=== PATIENT | male | born 2005 | race Caucasian/White ===

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

== ENCOUNTER 2025-04-15 10:38 | Emergency (ER) | payer OTHER ==
[2025-04-15 10:57] VITALS: TEMP 97.5
--- NOTE | 2025-04-15 11:31 | ED ---
Psych HPI - General Chief Complaint: Psychiatric Symptoms Stated Complaint: Petition Time Seen by Provider: 04/15/25 11:23 Source: patient, family (mother), RN notes reviewed Mode of arrival: ambulatory Limitations: no limitations - History of Present Illness Initial Comments: 19-year-old male accompanied by his mother presented the ER for evaluation of multiple complaints. Mother is aiding in HPI. Mother reports over the past month patient has been having difficulty breathing during the night. Frequently waking up unable to catch his breath. Patient reports this was worse last night and he was having mild tightness in his chest during this episode. He denies any dizziness, lightheadedness, diaphoresis, peripheral edema. Denies history of DVTs or PEs. Patient denies any recent sick contacts, fevers, chills, cough or congestion. Patient has not taken anything for symptoms at this time. Mother reports over the past couple of months patient has been seeing a counselor out of [facility]. They recommended a couple days ago that patient undergo mental health evaluation either inpatient or at a daily program out of [place]. Mother reports given they only have 1 vehicle patient is unable to do day program as she needs to be able to go to work, which he gets frequently angry about. Mother reports patient states he does not want to go inpatient as they will take him off Adderall. Mother reports over the past couple of weeks patient has becoming increasingly angry with frequent breakdowns often throwing and punching johnston. Last night patient was up all night having a breakdown throwing things and punching johnston in his room. She states he has never been physical with her but did mention he stated he would hurt her if she admitted him to the mental health unit. Mother states she "tricked" patient into coming to the emergency department for evaluation of breathing but states she is petitioning him for mental health evaluation. Mother reports patient does smoke tobacco and marijuana along with occasional alcohol consumption. She also mention patient has made suicidal comments recently. Patient denies homicidal or suicidal ideations. He also denies hallucinations. - Related Data Home Medications Medication Instructions Recorded Confirmed Dextroamphetamine/Amphetamine 7.5 mg PO BID 04/15/25 04/15/25 [Adderall 7.5 mg Tablet] Metoprolol Succinate (ER) [Toprol 50 mg PO DAILY 04/15/25 04/15/25 Xl] Mirtazapine [Remeron] 15 mg PO HS 04/15/25 04/15/25 Previous Rx's Medication Instructions Recorded Albuterol Inhaler [Ventolin Hfa 1 - 2 puff INHALATION Q6H PRN #1 04/15/25 Inhaler] each Allergies Allergy/AdvReac Type Severity Reaction Status Date / Time No Known Allergies Allergy Verified 04/15/25 14:45 Review of Systems ROS Statement: Those systems with pertinent positive or pertinent negative responses have been documented in the HPI. ROS Other: All systems not noted in ROS Statement are negative. Past Medical History Past Medical History: Asthma Additional Past Medical History / Comment(s): pneumonia History of Any Multi-Drug Resistant Organisms: None Reported Past Surgical History: No Surgical Hx Reported Additional Past Surgical History / Comment(s): wisdom teeth Past Psychological History: Anxiety, Depression Smoking Status: Never smoker, Vaper Past Alcohol Use History: Occasional Past Drug Use History: Marijuana General Exam Limitations: no limitations General appearance: alert, in no apparent distress ENT exam: Present: normal exam, normal oropharynx, mucous membranes moist Respiratory exam: Present: normal lung sounds bilaterally. Absent: respiratory distress, wheezes, rales, rhonchi, stridor Cardiovascular Exam: Present: normal rhythm, tachycardia, normal heart sounds GI/Abdominal exam: Present: soft, normal bowel sounds. Absent: distended, tenderness, guarding, rebound, rigid Extremities exam: Present: normal inspection, full ROM, normal capillary refill, other (No calf tenderness.). Absent: tenderness, pedal edema, joint swelling, c care home tenderness Neurological exam: Present: alert, oriented X3, CN II-XII intact Psychiatric exam: Present: anxious, flat affect Skin exam: Present: warm, dry, intact, normal color. Absent: rash Course Vital Signs 04/15/25 04/15/25 10:44 16:35 Temperature 97.5 F L Pulse Rate 115 H 98 Respiratory 22 18 Rate Blood Pressure 127/85 118/75 O2 Sat by Pulse 96 99 Oximetry - Reevaluation(s) Reevaluation #1: 04/15/25 15:45 Case discussed with Isi CHERY, EPS, she evaluated patient and reports patient denied SI or HI and can be discharged home with safety plan in place Medical Decision Making - Medical Decision Making Was pt. sent in by a medical professional or institution (Dr., PA, POWER HAMMER OPERATOR, urgent care, hospital, or penitentiary...) When possible be specific @ -No Did you speak to anyone other than the patient for history (EMS, parent, family, police, friend...)? What history was obtained from this source @ -Patient's mother aiding in HPI and past medical history. Did you review nursing and triage notes (agree or disagree)? Why? @ -I reviewed and agree with nursing and triage notes Were old charts reviewed (outside hosp., previous admission, EMS record, old EKG, old radiological studies, urgent care reports/EKG's, penitentiary records)? Report findings @ -No old charts were reviewed Differential Diagnosis (chest pain, altered mental status, abdominal pain women, abdominal pain men, vaginal bleeding, weakness, fever, dyspnea, syncope, headach e, dizziness, GI bleed, back pain, seizure, CVA, palpatations, mental health, musculoskeletal)? @ -Differential Dyspnea:Coronary syndrome, arrhythmia, tamponade, asthma, COPD, pulmonary embolism, pneumonia, pneumothorax, pulmonary effusion, anaphylaxis, diabetic ketoacidosis, flailed chest, pulmonary contusion, diaphragmatic rupture, anemia, neuromuscular, this is not meant to be an all-inclusive list. EKG interpreted by me (3pts min.). @ -As above X-rays interpreted by me (1pt min.). @ -CXR interpreted by me negative for focal consolidations, pneumothorax or pleural effusions. CT interpreted by me (1pt min.). @ -None done U/S interpreted by me (1pt. min.). @ -None done What testing was considered but not performed or refused? (CT, X-rays, U/S, labs)? Why? @ -None What meds were considered but not given or refused? Why? @ -None Did you discuss the management of the patient with other professionals (professionals i.e. , PA, POWER HAMMER OPERATOR, lab, RT, psych nurse, social secretary, gold marker, te acher, landing signal officer, case management director)? Give summary @ -Yes, Case discussed with Isi CHERY, EPS. She states patient to be discharged home with safety plan in place. Was smoking cessation discussed for >3mins.? @ -I discussed smoking cessation for greater than 3 minutes. The risk of smoking were discussed with the patient including but not limited to risks of cancer, stroke, coronary artery disease and COPD. Also discussed with patient were multiple methods of quitting smoking. Lastly we discussed the financial cost of smoking. Was critical care preformed (if so, how long)? @ -No Were there social determinants of health that impacted care today? How? (Homelessness, low income, unemployed, alcoholism, drug addiction, transportation, low edu. Level, literacy, decrease access to med. care, fdc, rehab)? @ -No Was there de-escalation of care discussed even if they declined (Discuss DNR or withdrawal of care, Hospice)? DNR status @ -No What co-morbidities impacted this encounter? (DM, HTN, Smoking, COPD, CAD, Cancer, CVA, ARF, Chemo, Hep., AIDS, mental health diagnosis, sleep apnea, morbid obesity)? @ -Mental health Was patient admitted / discharged? Hospital course, mention meds given and route, prescriptions, significant lab abnormalities, going to OR and other pertinent info. @ -Discharge. 19-year-old male accompanied by his mother presented to ER for mental health evaluation. Patient also notes shortness of breath for which dyspnea workup was obtained. Upon arrival patient mildly tachycardic at 115 bpm vitals otherwise stable. Patient had no signs of acute distress nontoxic- appearing. Lung sounds clear throughout all lung chou. Laboratory studies obtained unimpressive. Troponin undetectable. D-dimer undetectable. EKG showing a sinus rhythm with early repolarization. Viral swabs negative. UDS positive for amphetamines and marijuana patient is prescribed Adderall. CXR negative. Patient medically cleared for EPS evaluation. Isi EPS RN, evaluated patient and reports patient can be discharged home as safety plan is in place. Patient will be prescribed albuterol inhaler for shortness of breath. Strict return discussed. Patient discharged in stable condition advised follow-up with PCP and counseling. Patient and mother both state they feel comfortable going home. Patient and patient's mother verbally expressed understanding and agreement with care plan. Case discussed with ED attending, Dr. Fuchs. Undiagnosed new problem with uncertain prognosis? @ -No Drug Therapy requiring intensive monitoring for toxicity (Heparin, Nitro, Insulin, Cardizem)? @ -No Were any procedures done? @ -No Diagnosis/symptom? @ -Encounter for mental health evaluation/shortness of breath Acute, or Chronic, or Acute on Chronic? @ -Acute Uncomplicated (without systemic symptoms) or Complicated (systemic symptoms)? @ -Uncomplicated Side effects of treatment? @ -No Exacerbation, Progression, or Severe Exacerbation? @ -No Poses a threat to life or bodily function? How? (Chest pain, [place], [place], pneumonia, PE, COPD, DKA, ARF, appy, cholecystitis, CVA, Diverticulitis, Homicidal, Suicidal, threat to staff... and all critical care pts) @ -No - Lab Data Result diagrams: 04/15/25 11:55 04/15/25 11:55 Lab Results 04/15/25 04/15/25 04/15/25 Range/Units 11:21 11:25 11:55 WBC 8.78 (4.50-10.00) 10*3/uL RBC 5.56 (4.40-5.60) 10*6/uL Hgb 16.7 (13.0-17.0) g/dL Hct 46.9 (39.6-50.0) % MCV 84.4 (80.0-97.0) fL MCH 30.0 (27.0-32.0) pg MCHC 35.6 (32.0-37.0) g/dL Plt Count 191 (140-440) 10*3/uL MPV 9.7 (9.5-12.2) fL Immature Gran % (Auto) 0.5 % Neutrophils % 56.4 % Lymphocytes % 22.8 % Monocytes % 8.4 % Eosinophils % 11.2 % Basophils % 0.7 % Immature Gran # 0.04 (0.00-0.04) 10*3/uL Neutrophils # 4.96 (1.80-7.70) 10*3/uL Lymphocytes # 2.00 (0.90-5.00) 10*3/uL Monocytes # 0.74 (0.20-1.00) 10*3/uL Eosinophils # 0.98 H (0.04-0.35) 10*3/uL Basophils # 0.06 (0.00-0.10) 10*3/uL PT (10.0-12.5) sec INR (<1.2) APTT (22.0-30.0) sec D-Dimer (<0.60) mg/L FEU Sodium (137-145) mmol/L Potassium (3.5-5.1) mmol/L Chloride (98-107) mmol/L Carbon Dioxide (22-30) mmol/L Anion Gap mmol/L BUN (9-20) mg/dL Creatinine (0.66-1.25) mg/dL Est GFR (CKD-EPI)AfAm (>60 ml/min/1.73 sqM) Est GFR (CKD-EPI)NonAf (>60 ml/min/1.73 sqM) Glucose (74-99) mg/dL Calcium (8.4-10.2) mg/dL Total Bilirubin (0.2-1.3) mg/dL AST (17-59) U/L ALT (4-49) U/L Alkaline Phosphatase (38-126) U/L Troponin I (0.000-0.034) ng/mL Total Protein (6.3-8.2) g/dL Albumin (3.5-5.0) g/dL Urine Opiates Screen Not Detected (NotDetected) Ur Oxycodone Screen Not Detected (NotDetected) Urine Methadone Screen Not Detected (NotDetected) Ur Barbiturates Screen Not Detected (NotDetected) U Tricyclic Antidepress Not Detected (NotDetected) Ur Phencyclidine Scrn Not Detected (NotDetected) Ur Amphetamines Screen Detected H (NotDetected) U Methamphetamines Scrn Not Detected (NotDetected) U Benzodiazepines Scrn Not Detected (NotDetected) Urine Cocaine Screen Not Detected (NotDetected) U Marijuana (THC) Screen Detected H (NotDetected) Influenza Type A (PCR) Not Detected (Not Detectd) Influenza Type B (PCR) Not Detected (Not Detectd) RSV (PCR) Not Detected (Not Detectd) SARS-CoV-2 (PCR) Not Detected (Not Detectd) 04/15/25 04/15/25 04/15/25 Range/Units 11:55 11:55 11:55 WBC (4.50-10.00) 10*3/uL RBC (4.40-5.60) 10*6/uL Hgb (13.0-17.0) g/dL Hct (39.6-50.0) % MCV (80.0-97.0) fL MCH (27.0-32.0) pg MCHC (32.0-37.0) g/dL Plt Count (140-440) 10*3/uL MPV (9.5-12.2) fL Immature Gran % (Auto) % Neutrophils % % Lymphocytes % % Monocytes % % Eosinophils % % Basophils % % Immature Gran # (0.00-0.04) 10*3/uL Neutrophils # (1.80-7.70) 10*3/uL Lymphocytes # (0.90-5.00) 10*3/uL Monocytes # (0.20-1.00) 10*3/uL Eosinophils # (0.04-0.35) 10*3/uL Basophils # (0.00-0.10) 10*3/uL PT 10.7 (10.0-12.5) sec INR 1.0 (<1.2) APTT 25.9 (22.0-30.0) sec D-Dimer <0.17 (<0.60) mg/L FEU Sodium 142 (137-145) mmol/L Potassium 4.4 (3.5-5.1) mmol/L Chloride 103 (98-107) mmol/L Carbon Dioxide 31 H (22-30) mmol/L Anion Gap 8 mmol/L BUN 12 (9-20) mg/dL Creatinine 0.95 (0.66-1.25) mg/dL Est GFR (CKD-EPI)AfAm >90 (>60 ml/min/1.73 sqM) Est GFR (CKD-EPI)NonAf >90 (>60 ml/min/1.73 sqM) Glucose 91 (74-99) mg/dL Calcium 9.5 (8.4-10.2) mg/dL Total Bilirubin 2.3 H (0.2-1.3) mg/dL AST 26 (17-59) U/L ALT 23 (4-49) U/L Alkaline Phosphatase 60 (38-126) U/L Troponin I <0.012 (0.000-0.034) ng/mL Total Protein 6.8 (6.3-8.2) g/dL Albumin 4.6 (3.5-5.0) g/dL Urine Opiates Screen (NotDetected) Ur Oxycodone Screen (NotDetected) Urine Methadone Screen (NotDetected) Ur Barbiturates Screen (NotDetected) U Tricyclic Antidepress (NotDetected) Ur Phencyclidine Scrn (NotDetected) Ur Amphetamines Screen (NotDetected) U Methamphetamines Scrn (NotDetected) U Benzodiazepines Scrn (NotDetected) Urine Cocaine Screen (NotDetected) U Marijuana (THC) Screen (NotDetected) Influenza Type A (PCR) (Not Detectd) Influenza Type B (PCR) (Not Detectd) RSV (PCR) (Not Detectd) SARS-CoV-2 (PCR) (Not Detectd) - EKG Data -: EKG Interpreted by Me EKG Comments: EKG taken at 11: 31 showing a sinus rhythm with early repolarization. No ST depression or T wave inversions. Ventricular rate 96, MN interval 129, QRS duration 86, QT/QTc 344/398. - Radiology Data Radiology results: report reviewed, image reviewed Disposition Clinical Impression: Encounter for psychiatric assessment, Shortness of breath Disposition: HOME SELF-CARE Condition: Stable Instructions (If sedation given, give patient instructions): Shortness of Breath (ED) Additional Instructions: Follow-up with PCP and [facility] for further evaluation. Return to the ER for any new or worsening concerns. Prescriptions: Albuterol Inhaler [Ventolin Hfa Inhaler] 1 - 2 puff INHALATION Q6H PRN #1 each PRN Reason: Shortness Of Breath Is patient prescribed a controlled substance at d/c from ED?: No Referrals: None,Stated [Primary Care Provider] - 1-2 days [facility] Internal,Medicine [NON-STAFF] - 1-2 days [facility] Family,Medicine [NON-STAFF] - 1-2 days Forms: Area PCPs, Outpatient Therapy List, Outpatient Counseling, Who Do I Call? Time of Disposition: 16:02
--- NOTE | 2025-04-15 11:48 | XR ---
EXAMINATION TYPE: XR chest 2V DATE OF EXAM: 04/15/2025 11:45 AM COMPARISON: None. CLINICAL INDICATION: Male, 19 years old with history of cough niraj, TECHNIQUE: XR chest 2V view(s) obtained. FINDINGS: The heart size is normal. The pulmonary vasculature is normal. The lungs are clear. Hyperinflation is present. IMPRESSION: 1. No acute pulmonary process. 2. Hyperinflation can be associated with asthma. [facility], , 04/15/2025 11:45 AM
[2025-04-15 12:06] LABS: Barbiturate Screen,Urine Not Detected (NotDetected); Benzodiazepines Screen,Urine Not Detected (NotDetected); Opiate Screen,Urine Not Detected (NotDetected); Oxycodone Screen, Urine Not Detected (NotDetected); Phencyclidine Screen,Urine Not Detected (NotDetected); Tricyclic Antidepressant,Urine Not Detected (NotDetected); Urn Cannabinoid Scrn Detected (NotDetected)
[2025-04-15 12:19] LABS: Basophils # (A) 0.06 10*3/uL (0.00-0.10); Basophils % (A) 0.7 %; Eosinophils # (A) 0.98 10*3/uL (0.04-0.35); Eosinophils % (A) 11.2 %; HCT 46.9 % (39.6-50.0); HGB 16.7 g/dL (13.0-17.0); Lymphocytes # (A) 2.00 10*3/uL (0.90-5.00); Lymphocytes % (A) 22.8 %; MCH 30.0 pg (27.0-32.0); MCHC 35.6 g/dL (32.0-37.0); MCV 84.4 fL (80.0-97.0); Monocytes # (A) 0.74 10*3/uL (0.20-1.00); Monocytes % (A) 8.4 %; Neutrophils # (A) 4.96 10*3/uL (1.80-7.70); Neutrophils % (A) 56.4 %; Platelet Count 191 10*3/uL (140-440); RBC 5.56 10*6/uL (4.40-5.60); RDW 11.9 % (11.5-14.5); WBC 8.78 10*3/uL (4.50-10.00)
[2025-04-15 12:26] LABS: RSV Not Detected (Not Detectd)
[2025-04-15 12:32] LABS: ALT 23 U/L (4-49); AST 26 U/L (17-59); African American GFR (CKD) >90 (>60 ml/min/1.73 sqM); Albumin 4.6 g/dL (3.5-5.0); Alkaline Phosphatase 60 U/L (38-126); Anion Gap 8 mmol/L; Blood Urea Nitrogen 12 mg/dL (9-20); Calcium 9.5 mg/dL (8.4-10.2); Carbon Dioxide 31 mmol/L (22-30); Chloride 103 mmol/L (98-107); Glucose 91 mg/dL (74-99); Non-African American GFR(CKD) >90 (>60 ml/min/1.73 sqM); Potassium 4.4 mmol/L (3.5-5.1); Sodium 142 mmol/L (137-145); Total Protein 6.8 g/dL (6.3-8.2)
[2025-04-15 13:15] LABS: INR 1.0 (<1.2); Partial Thromboplastin Time 25.9 sec (22.0-30.0); Prothrombin Time 10.7 sec (10.0-12.5)
[2025-04-15] MEDS: NICOTINE 7MG/24HR PATCH TRANSDERM STA (13:24)
[2025-04-15 16:37] VITALS: BP 118/75; PULSE 98; RESP 18
== END 2025-04-15 16:36 | disposition home or self-care (01) ==
LOC: EC 10:38
CPT/HCPCS: 36415; 71046; 80053; 80306; 82075; 84484; 85025; 85379; 85610; 85730; 87636; 93005; 99285